=== PATIENT | female | born 1980 | race African-American/Black ===

== ENCOUNTER 2016-12-02 07:27 | Emergency (ER) | payer OTHER ==
[~2016-12-02] VITALS: Ht 167.6 cm; Wt 113.4 kg
[~2016-12-02 07:27] MED LIST: BUSP5TAB PO; ESCI10TA10 PO
[2016-12-02 07:30] VITALS: BP 160/76
[2016-12-02] MEDS ORDERED: OFLO5DRO EACHEYE (08:04)
[2016-12-02] MEDS ORDERED: ERYT1OIN6 EACHEYE (08:04)
--- NOTE | 2016-12-02 08:04 | PHYS DOC ---
Past Medical History Past Medical History: Anxiety, Other Additional Past Medical Histor: palpitations Past Surgical History: Appendectomy, Oophorectomy, Tubal ligation Additional Past Surgical Histo: OPHRECTOMY X1 Additional Information: nonsmoker Alcohol Use: Occasionally Drug Use: None Adult General Chief Complaint Chief Complaint: EYE PROBLEMS HPI HPI Patient is a 36 year old female who presents with 2 weeks of left eyelid irritation. She had been having lash extensions applied. Her laborer construction or leak gang noticed that the eyelid margins were dry. The dryness extended up the eyelid. She exfoliated, which irritated the skin. She has noticed increased crusting of the eyelashes, particularly in the mornings. Yesterday she began to have photophobia and pain in both eyes. This morning she awoke with both eyelashes matted shut with green drainage. She has stopped using her eye makeup. The lash extensions have all fallen out. She denies any contact lens use or injury to the eyes. She does not have a PCP. Review of Systems Review of Systems Constitutional: Denies fever or chills. [] Eyes: Denies redness. Reports bilateral eye pain, drainage, and drainage. HENT: Denies ear pain, nasal congestion or sore throat. [] Integument: Denies rash or skin lesions. [] Neurologic: Denies headache, focal weakness or sensory changes. [] Allergies Allergies Allergies Coded Allergies Type Severity Reaction Last Updated Verified No Known Drug Allergies 07/15/15 No Physical Exam Physical Exam Constitutional: Well developed, well nourished, no acute distress, non-toxic appearance. [] HENT: Normocephalic, atraumatic, bilateral external ears normal, oropharynx moist, no oral exudates, nose normal. [] Eyes: PERRLA, EOMI, conjunctiva normal, no discharge. There is no conjunctival injection. There is no discharge seen in the eyes or eyelid margins. There is no edema of the eyelids. Visual acuity: OS 20/50, OD 20/25, OU 20/25. Skin: Warm, dry, no erythema, no rash. [] Neurologic: Alert and oriented X 3, normal motor function, normal sensory function, no focal deficits noted. [] Psychologic: Affect normal, judgement normal, mood normal. [] Current Patient Data Vital Signs Vital Signs Date Time Temp Pulse Resp B/P Pulse Ox O2 Delivery O2 Flow Rate FiO2 12/02/16 07:30 98.8 50 18 98 Room Air 98.8 EKG EKG [] Radiology/Procedures Radiology/Procedures [] Course & Med Decision Making Course & Med Decision Making Pertinent Labs and Imaging studies reviewed. (See chart for details) [] Dragon Disclaimer Dragon Disclaimer This electronic medical record was generated, in whole or in part, using a voice recognition dictation system. Departure Departure Impression: Primary Impression: Blepharitis of both eyes Disposition: HOME, SELF-CARE Condition: STABLE Referrals: JOANNA BUSBY MD Patient Instructions: Blepharitis, [id number] Additional Instructions: Please use the prescribed antibiotic ointment at night or while at home. Apply to the eyelid margin. Please use the prescribed antibiotic drops during the day or while outside the home. Apply in the eye. Please discard all old eye makeup and begin using new makeup after the infection has cleared. Do not wear eye makeup until cleared. Please follow up with the parliamentary librarian listed below if you have any complications. Return to the emergency department if you have any new or concerning symptoms. Scripts Ofloxacin (Ocuflox)5 Ml Drops1-2 Drop EACHEYE QID 7 Days Prov:GURINDER FERNÁNDEZ 12/02/16 Erythromycin Base (Erythromycin)3.5 Gm Oint...g.1 Mary Jane EACHEYE BID 7 Days Prov:GURINDER FERNÁNDEZ 12/02/16 Problem Qualifiers Primary Impression: Blepharitis of both eyes Blepharitis type: unspecified type Eyelid: upper Qualified Code: H01.001 - Unspecified blepharitis right upper eyelid GURINDER FERNÁNDEZ Dec 02, 2016 08:04
== END 2016-12-02 08:18 | disposition home or self-care (01) ==
LOC: ER 07:27
DX: H01.004 Unspecified blepharitis left upper eyelid (principal); H01.001 Unspecified blepharitis right upper eyelid
CPT/HCPCS: 99283

== ENCOUNTER 2018-04-28 11:53 | Emergency (ER) | payer BC, OTHER ==
[2018-04-28 13:01] LABS: URINE HCG POC HCG NEGATIVE (Negative)
[2018-04-28 13:04] LABS: ADD MAN DIFF? NO
[2018-04-28 13:09] LABS: BILIRUBIN,URINE NEGATIVE (NEG); CLARITY,URINE CLEAR; COLOR,URINE YELLOW; GLUCOSE,URINE NEGATIVE (NEG); NITRITE,URINE NEGATIVE (NEG); PH,URINE 5.5; PROTEIN,URINE NEGATIVE (NEG-TRACE); UROBILINOGEN,URINE 0.2 mg/dL (0.2 mg/dL)
[2018-04-28 13:28] LABS: ALBUMIN 3.5 g/dL (3.4-5.0); ALBUMIN/GLOBULIN RATIO 0.8 (1.0-1.7); ALK PHOS 105 U/L (46-116); ALT (SGPT) 19 U/L (14-59); ANION GAP 7 (6-14); AST (SGOT) 16 U/L (15-37); BASO # 0.1 x10^3/uL (0.0-0.2); BASO % 1 % (0-3); BLOOD UREA NITROGEN 10 mg/dL (7-20); BUN/CREATININE RATIO 11 (6-20); CALCIUM 8.9 mg/dL (8.5-10.1); CARBON DIOXIDE 25 mmol/L (21-32); CHLORIDE 104 mmol/L (98-107); CREATININE 0.9 mg/dL (0.6-1.0); EOS # 0.1 x10^3/uL (0.0-0.7); EOS % 1 % (0-3); GFR 86.2; GLUCOSE 104 mg/dL (70-99); HEMATOCRIT 34.8 % (36.0-47.0); HEMOGLOBIN 10.9 g/dL (12.0-15.5); LIPASE 89 U/L (73-393); LYMPH # 2.8 x10^3/uL (1.0-4.8); LYMPH % 41 % (24-48); MEAN CORPUSCULAR HEMOGLOBIN 21 pg (25-35); MEAN CORPUSCULAR HGB CONC 31 g/dL (31-37); MEAN CORPUSCULAR VOLUME 68 fL (79-100); MONO # 0.5 x10^3/uL (0.0-1.1); MONO % 7 % (0-9); NEUT # 3.4 x10^3uL (1.8-7.7); NEUT % 50 % (31-73); PLATELET COUNT 300 x10^3/uL (140-400); POTASSIUM 3.6 mmol/L (3.5-5.1); RED BLOOD COUNT 5.09 x10^6/uL (3.50-5.40); RED CELL DISTRIBUTION WIDTH 18.3 % (11.5-14.5); SODIUM 136 mmol/L (136-145); TOTAL BILIRUBIN 0.7 mg/dL (0.2-1.0); TOTAL PROTEIN 7.8 g/dL (6.4-8.2); WHITE BLOOD COUNT 6.8 x10^3/uL (4.0-11.0)
[2018-04-28] MEDS: MORPHINE SULFATE 4 MG/ML DISP.SYRIN. IV (13:28)
[2018-04-28 13:47] LABS: BACTERIA,URINE 0 /HPF (0-FEW); RBC,URINE 0 /HPF (0-2); SQUAMOUS EPITHELIAL CELL,UR MOD /LPF; WBC,URINE 0 /HPF (0-4)
[2018-04-28 15:00] LABS: ANISOCYTOSIS SLIGHT; HYPOCHROMIA SLIGHT; PLT ESTIMATE ADEQUATE (ADEQUATE); POLYCHROMASIA SLIGHT
[2018-04-28 15:01] LABS: MICROCYTOSIS MARKED
[2018-04-29 14:31] LABS: CHLAMYDIA PROBE Negative (Negative); GC PROBE Negative (Negative)
== END 2018-04-28 15:39 | disposition home or self-care (01) ==
LOC: ER 11:53
DX: R10.2 Pelvic and perineal pain (principal); F41.9 Anxiety disorder, unspecified; Z90.49 Acquired absence of other specified parts of digestive tract; Z98.51 Tubal ligation status
CPT/HCPCS: 36415; 76830; 76856; 80053; 81001; 81025; 83690; 85025; 87491; 87591; 96374; 99285-25; J2270; Q0111